=== PATIENT | female | born 1990 | race Caucasian/White ===

== ENCOUNTER 2021-04-06 19:19 | Emergency (ER) | payer BC ==
[~2021-04-06] VITALS: Ht 167.6 cm; Wt 90.7 kg
--- NOTE | 2021-04-06 21:30 | NUR ---
BIBS C/O "DIFFICULTY BREATHING, ITCHY THROAT AND A DRY COUGH" SINCE 3PM. PT AAOX4, DENIES CP, DIZZINESS, N/V/D AT THIS TIME. PT SEEN & EVAL'D BY DR. BARON. WILL CONT TO MONITOR.
[2021-04-06] MEDS ORDERED: predniSONE 20 MG TABLET ONE (21:31)
[2021-04-06] MEDS ORDERED: FAMOTIDINE (20 MG) 20 MG TABLET ONE (21:32)
[2021-04-06] MEDS: predniSONE 20 MG TABLET PO ONE (21:35)
[2021-04-06] MEDS: FAMOTIDINE (20 MG) 20 MG TABLET PO ONE (21:35)
--- NOTE | 2021-04-06 21:36 | NUR ---
MEDICATED PER ERMD ORDER, PT KELLIE WELL.
[2021-04-06] MEDS ORDERED: ALBU8.5H8 INH (21:40)
[2021-04-06] MEDS ORDERED: DIPH25CA83 PO (21:40)
[2021-04-06] MEDS ORDERED: FAMO-131 PO (21:40)
[2021-04-06] MEDS ORDERED: PRED50TA PO (21:40)
[2021-04-06] MEDS ORDERED: IPRATROPIUM NEB FS 0.5 MG/2.5 ML AMPUL.NEB ONE (21:44)
[2021-04-06] MEDS ORDERED: ALBUTEROL FS 2.5 MG/3 ML VIAL.NEB ONE (21:44)
--- NOTE | 2021-04-06 21:50 | NUR ---
RESP THERAPISTS AT FOR BREATHING TX. WILL CONT TO MONITOR.
[2021-04-06] MEDS: IPRATROPIUM NEB FS 0.5 MG/2.5 ML AMPUL.NEB NEB ONE (21:52)
[2021-04-06] MEDS: ALBUTEROL FS 2.5 MG/3 ML VIAL.NEB NEB ONE (21:52)
[2021-04-06 22:51] VITALS: BP 116/68
--- NOTE | 2021-04-06 22:51 | NUR ---
Patient discharged to home in stable condition. Written and verbal after care instructions given. Patient verbalizes understanding of instruction.
== END 2021-04-06 22:52 | disposition home or self-care (01) ==
LOC: ER 19:24
DX: J02.9 Acute pharyngitis, unspecified (principal); T78.3XXA Angioneurotic edema, initial encounter; Z91.012 Allergy to eggs; Z91.018 Allergy to other foods; Z91.010 Allergy to peanuts; Z88.0 Allergy status to penicillin
CPT/HCPCS: 94640; 99283; J7512

== ENCOUNTER 2021-04-11 20:38 | Emergency (ER) | payer BC ==
[~2021-04-11] VITALS: Ht 170.2 cm; Wt 90.7 kg
[~2021-04-11 20:38] MED LIST: ALBU8.5H8 INH; DIPH25CA83 PO; FAMO-131 PO; PRED50TA PO
--- NOTE | 2021-04-11 21:05 | NUR ---
Note [email or web address] in ED - 04/11/21 at 2108 by DANNY PT BIBDAUGHTER C/O LEFT EYE ITCHINESS, SWELLING AND YELLOW [id number]. PATIENT ALERT AND ORIENTED X3. AMBULATORY WITH NON LABORED BREATHING. PATIENT VISUAL ACUITY WAS DONE . PLACED IN BED 10 NO C/O AT THIS TIME
--- NOTE | 2021-04-11 21:06 | NUR ---
Note undone in EDM - 04/11/21 at 2110 by BRIA BIBS C/O L EYE SWELLING AND PAIN X4 DAYS. UPON ASSESSMENT -REDNESS -DRAINAGE +MILD SWELLING TO LEFT EYE. PT DENIED AND CHANGES IN VISION VISUAL ACQUITY RESULT L: R: B:. 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 VITAL SIGNS ASSESSED AND BREATHING IS EVEN AND UNLABORED.
--- NOTE | 2021-04-11 21:23 | NUR ---
BIBS C/O COUGH WITH EXCESS PHLEGM "UNABLE TO SWALLOW THE PHLEGM" PATIENT WAS SEEN HERE WEDNESDAY FOR SAME REASON "PROGRESSIVELY GOT WORSE". PATIENT ALERT AND ORIENTED X3. AMBULATORY WITH NON LABORED BREATHING.
[2021-04-12] MEDS ORDERED: DIPH360L2 PO (00:53)
--- NOTE | 2021-04-12 01:06 | NUR ---
Patient discharged to home in stable condition. Rx and Written and verbal after care instructions given. Patient verbalizes understanding of instruction.
[2021-04-12 01:07] VITALS: BP 141/77
== END 2021-04-12 01:10 | disposition home or self-care (01) ==
LOC: ER 20:39
DX: J06.9 Acute upper respiratory infection, unspecified (principal); Z88.0 Allergy status to penicillin; Z91.012 Allergy to eggs; Z91.018 Allergy to other foods; Z91.010 Allergy to peanuts; Z79.899 Other long term (current) drug therapy

== ENCOUNTER 2023-12-11 00:26 | Emergency (ER) | payer BC ==
[~2023-12-11] VITALS: Ht 170.2 cm; Wt 99.8 kg
[~2023-12-11 00:26] MED LIST changes: +DIPH360L2 PO
[2023-12-11] MEDS ORDERED: FLUT16SP16 BNOSTRILS (03:05)
[2023-12-11 03:34] VITALS: BP 135/76; TEMP 98.4; O2SAT 98
== END 2023-12-11 03:35 | disposition home or self-care (01) ==
LOC: ER 00:28
DX: R09.82 Postnasal drip (principal); Z91.012 Allergy to eggs; Z91.011 Allergy to milk products; Z91.018 Allergy to other foods; Z91.010 Allergy to peanuts; Z88.0 Allergy status to penicillin